=== PATIENT | male | born 1995 | race Two or more races ===

== ENCOUNTER 2024-02-04 14:45 | Inpatient (IN) | payer OTHER ==
[~2024-02-04] VITALS: Ht 185.4 cm; Wt 104.5 kg
[2024-02-04 16:59] LABS: HEMATOCRIT 41.2 % (42.0-52.0); HEMOGLOBIN 13.8 g/dl (13.5-17.5); MEAN CORPUSCULAR HEMOGLOBIN 26.8 pg (27.0-33.0); MEAN CORPUSCULAR HGB CONC 33.5 g/dl (32.0-36.5); PLATELET COUNT, AUTOMATED 227 10^3/uL (150-450); RED BLOOD COUNT 5.15 10^6/uL (4.30-6.10); WHITE BLOOD COUNT 8.1 10^3/uL (4.0-10.0)
[2024-02-04 17:26] LABS: AMPHETAMINES LEVEL URINE NEGATIVE (NEGATIVE); BARBITURATES URINE NEGATIVE (NEGATIVE); COCAINE METABOLITE URINE NEGATIVE (NEGATIVE); METHADONE URINE NEGATIVE (NEGATIVE); OPIATES URINE NEGATIVE (NEGATIVE)
[2024-02-04 17:27] LABS: BENZODIAZEPINES URINE NEGATIVE (NEGATIVE); CANNABINOIDS URINE NEGATIVE (NEGATIVE); ETHYL ALCOHOL (ETHANOL) < 0.003 % (0.000-0.010); PHENCYCLIDINE URINE NEGATIVE (NEGATIVE)
[2024-02-04 17:29] LABS: ALBUMIN 4.1 G/DL (3.2-5.2); ALKALINE PHOSPHATASE 53 U/L (46-116); ALT/SGPT 31 U/L (7.0-40); AST/SGOT 16 U/L (<34); BILIRUBIN,DIRECT 0.2 MG/DL (<0.4); BILIRUBIN,TOTAL 0.7 MG/DL (0.3-1.2); BLOOD UREA NITROGEN 15 MG/DL (9-23); CALCIUM LEVEL 9.4 MG/DL (8.5-10.1); CARBON DIOXIDE LEVEL 29 MMOL/L (20-31); CHLORIDE LEVEL 105 MMOL/L (98-107); CREATININE FOR GFR 0.91 MG/DL (0.70-1.30); GLOMERULAR FILTRATION RATE > 60.0 (>60); GLUCOSE, FASTING 76 MG/DL (60-100); POTASSIUM SERUM 3.9 MMOL/L (3.5-5.1); SALICYLATE LEVEL < 3.0 MG/DL (<30); SODIUM LEVEL 140 MMOL/L (136-145); TOTAL PROTEIN 6.8 G/DL (5.7-8.2)
[2024-02-04 17:33] LABS: THYROID STIMULATING HORMONE 4.789 uIU/ML (0.55-4.78)
[2024-02-04] MEDS ORDERED: diphenhydrAMINE 25MG CAP PO PRN (18:50)
[2024-02-04] MEDS ORDERED: MAALOX 30 ML SUSP *UDC PO PRN (18:50)
[2024-02-04] MEDS ORDERED: MOM 30ML SUSPENSION UDC PO PRN (18:50)
[2024-02-04] MEDS ORDERED: ACETAMINOPHEN TAB 650MG DOSE (2X325MG) PO PRN (18:50)
[2024-02-04] MEDS ORDERED: IBUPROFEN 400MG TAB PO PRN (18:50)
[2024-02-04] MEDS ORDERED: HOME MED LIST COMPLETE! XX SCH (19:25)
[2024-02-04 21:30] VITALS: BP 116/67; TEMP 98; O2SAT 99
[2024-02-04] MEDS: traZODone 50 MG TAB PO PRN (21:41)
[2024-02-05 06:06] VITALS: BP 136/78; TEMP 97.3; O2SAT 98
[2024-02-05 17:12] VITALS: BP 134/73; TEMP 97.9; O2SAT 98
[2024-02-05] MEDS: NICOTINE 21MG/24HR 1 EA TRANSDERMAL TD SCH (17:22)
[2024-02-06 06:05] VITALS: BP 115/60; TEMP 98.1; O2SAT 96
== END 2024-02-06 13:16 | disposition home or self-care (01) | DRG 881 ==
LOC: M ED 14:45 → M ED INP 18:49 → M PSY 20:58
PROVIDERS: ADMIT Psychiatry & Neurology Child & Adolescent Psychiatry; ATTEND Psychiatry & Neurology Child & Adolescent Psychiatry
DX: F32.A Depression, unspecified (principal); F17.290 Nicotine dependence, other tobacco product, uncomplicated

== ENCOUNTER 2024-04-11 11:01 | Emergency (ER) | payer OTHER ==
[~2024-04-11 11:01] MED LIST: VITAMIN D 1,000 INTERNATIONAL UNITS TABLET PO SCH
[2024-04-11 12:09] LABS: HEMOGLOBIN 14.3 g/dl (13.5-17.5); MEAN CORPUSCULAR HEMOGLOBIN 27.4 pg (27.0-33.0); MEAN CORPUSCULAR VOLUME 80.5 fl (80.0-96.0); PLATELET COUNT, AUTOMATED 256 10^3/uL (150-450); RED BLOOD COUNT 5.22 10^6/uL (4.30-6.10); WHITE BLOOD COUNT 7.2 10^3/uL (4.0-10.0)
[2024-04-11 12:35] LABS: AMPHETAMINES LEVEL URINE NEGATIVE (NEGATIVE); BARBITURATES URINE NEGATIVE (NEGATIVE)
[2024-04-11 12:36] LABS: BENZODIAZEPINES URINE NEGATIVE (NEGATIVE); CANNABINOIDS URINE NEGATIVE (NEGATIVE); COCAINE METABOLITE URINE NEGATIVE (NEGATIVE); METHADONE URINE NEGATIVE (NEGATIVE); OPIATES URINE NEGATIVE (NEGATIVE); PHENCYCLIDINE URINE NEGATIVE (NEGATIVE)
[2024-04-11 12:39] LABS: ETHYL ALCOHOL (ETHANOL) 0.004 % (0.000-0.010)
[2024-04-11 12:40] LABS: ALBUMIN 4.2 G/DL (3.2-5.2); ALKALINE PHOSPHATASE 64 U/L (46-116); ALT/SGPT 24 U/L (7.0-40); AST/SGOT 19 U/L (<34); BILIRUBIN,DIRECT 0.2 MG/DL (<0.4); BILIRUBIN,TOTAL 0.6 MG/DL (0.3-1.2); BLOOD UREA NITROGEN 13 MG/DL (9-23); CALCIUM LEVEL 9.9 MG/DL (8.5-10.1); CARBON DIOXIDE LEVEL 27 MMOL/L (20-31); CHLORIDE LEVEL 103 MMOL/L (98-107); CREATININE FOR GFR 0.89 MG/DL (0.70-1.30); GLOMERULAR FILTRATION RATE > 60.0 (>60); GLUCOSE, FASTING 102 MG/DL (60-100); SALICYLATE LEVEL < 3.0 MG/DL (<30); SODIUM LEVEL 136 MMOL/L (136-145); TOTAL PROTEIN 7.5 G/DL (5.7-8.2)
[2024-04-11 12:42] LABS: THYROID STIMULATING HORMONE 1.183 uIU/ML (0.55-4.78)
[2024-04-11] MEDS ORDERED: HOME MED LIST COMPLETE! XX SCH (13:15)
[2024-04-11] MEDS ORDERED: ASHW300T2 PO (13:15)
[2024-04-11] MEDS ORDERED: D3 H10002 PO (13:15)
[2024-04-11 13:46] VITALS: BP 130/69; TEMP 97.7; O2SAT 99
[2024-04-12] MEDS ORDERED: VITAMIN D 1,000 INTERNATIONAL UNITS TABLET PO SCH ×2 (09:00)
== END 2024-04-11 13:52 | disposition home or self-care (01) ==
LOC: M ED 11:01
DX: F32.A Depression, unspecified (principal); F10.10 Alcohol abuse, uncomplicated